=== PATIENT | male | born 1975 | race Caucasian/White ===

== ENCOUNTER → 2016-04-13 | Outpatient (CLI) | payer OTHER ==
[~2016-04-13] MED LIST: BENZ1TAB5 PO; DIVA500T9 PO; GADOBUTROL 10 MMOL/10 ML VIAL IV ONE; OLAN20TA7 PO
--- NOTE | 2016-04-13 14:36 | KCIC ---
PROCEDURE MRI brain with and without contrast. HISTORY New onset psychosis. Diagnosed with schizophrenia recently. New tremor. TECHNIQUE Sagittal T1, axial T1, axial T2, axial FLAIR, axial T2 gradient, diffusion imaging with ADC map, post-contrast axial, and post-contrast coronal sequences are provided. 10 milliliters of intravenous Gadavist was administered without complication. COMPARISON None. FINDINGS The ventricles and sulci are within normal limits for age. A few scattered FLAIR hyperintensities in the supratentorial white matter, mostly bifrontal, are nonspecific but most suggestive of minimal small vessel ischemic disease. Findings also could be sequela of migraine headaches. Distribution pattern is not typical for demyelination, this is a lesser consideration. There is no acute intracranial hemorrhage or extra-axial fluid collection. There is no mass effect or midline shift. There is no restricted diffusion to suggest an acute infarct. There is no pathologic enhancement. The intracranial flow voids are preserved. The cervicomedullary junction is unremarkable. There is ethmoid and maxillary mucosal thickening. IMPRESSION 1. No acute intracranial findings. 2. Brain parenchymal volume loss. 3. Minimal nonspecific FLAIR hyperintensities in the supratentorial white matter. Differential considerations would include minimal small vessel ischemic disease and sequela of migraine headaches, with demyelination a lesser consideration. Electronically signed by: Sharif Solomon MD (Apr 13, 2016 14:34:21)
== END | disposition home or self-care (01) ==
LOC: KCIC MRI 13:20
DX: F29 Unspecified psychosis not due to a substance or known physiological condition (principal); G43.909 Migraine, unspecified, not intractable, without status migrainosus
CPT/HCPCS: 70553; A9585